=== PATIENT | female | born 1965 | race African-American/Black ===

== ENCOUNTER 2016-11-23 17:54 | Emergency (ER) | payer MEDICAID ==
[2014-10-25 09:11] VITALS: BMI 30.3
[~2016-11-23 17:54] MED LIST: AMITRIPTYLINE100 MG PO; CALAN120 MG PO; DILANTIN100 MG PO; HYDROCODON-ACE1 EAC7 PO; LASIX20 MG PO; XANAX1 MG PO; ZANTAC150 MG PO
== END 2016-11-23 19:57 | disposition left against medical advice (07) ==
LOC: D.ER 17:54
DX: S79.911A Unspecified injury of right hip, initial encounter (principal); X58.XXXA Exposure to other specified factors, initial encounter; Y93.89 Activity, other specified; Y92.89 Other specified places as the place of occurrence of the external cause

== ENCOUNTER 2016-11-30 12:36 | Emergency (ER) | payer MEDICAID ==
[2014-10-25 09:11] VITALS: BMI 30.3
== END 2016-11-30 16:30 | disposition home or self-care (01) ==
LOC: D.ER 12:36
DX: M25.551 Pain in right hip (principal); M54.30 Sciatica, unspecified side; I10 Essential (primary) hypertension; F17.200 Nicotine dependence, unspecified, uncomplicated

== ENCOUNTER 2017-07-08 00:35 | Emergency (ER) | payer MEDICAID ==
[2014-10-25 09:11] VITALS: BMI 30.3
[2017-07-08 01:27] LABS: BASOPHILS 0.1 % (0-2); EOSINOPHILS 0.7 % (0-7); HEMATOCRIT 39.1 % (36.0-48.0); HEMOGLOBIN 13.3 g/dL (12-16); IMMATURE GRANULOCYTES 0.3 % (0-5); LYMPHOCYTES 19.4 % (15-50); MCH 32.8 pg (26.0-34.0); MCV 96.5 fL (80.0-100.0); MEAN PLATELET VOLUME 9.7 fL (7.4-10.4); MONOCYTES 5.1 % (2-11); NEUTROPHILS 74.4 % (40-80); PLATELET COUNT 340 10x3/uL (130-400); RBC 4.05 10x6/uL (4.00-5.40); RDW 14.2 % (11.5-14.5); WBC 14.7 10x3/uL (4.8-10.8)
[2017-07-08 01:44] LABS: ALBUMIN 3.5 g/dL (3.4-5.0); ANION GAP 11.9 mmol/L (8-16); BILIRUBIN - TOTAL 0.27 mg/dL (0.2-1.3); CALCIUM 8.6 mg/dL (8.5-10.1); CARBON DIOXIDE 25.7 mmol/L (21.0-32.0); CREATININE - SERUM 1.1 mg/dL (0.6-1.3); POTASSIUM - SERUM 3.6 mmol/L (3.5-5.1); PROTEIN - SERUM 8.2 g/dL (6.4-8.2)
[2017-07-08 01:52] LABS: UDS - AMPHET NEGATIVE QUAL (NEGATIVE); UDS - BARB NEGATIVE QUAL (NEGATIVE); UDS - BENZO POSITIVE QUAL (NEGATIVE); UDS - COCAINE POSITIVE QUAL (NEGATIVE); UDS - OPIATE POSITIVE QUAL (NEGATIVE); UDS - PCP NEGATIVE QUAL (NEGATIVE); UDS - THC POSITIVE QUAL (NEGATIVE)
[2017-07-08 01:52] LABS: PHENYTOIN (DILANTIN) 12.2 ug/mL (10.0-20.0)
[2017-07-08 02:10] LABS: APPEARANCE CLEAR (CLEAR); BILIRUBIN NEGATIVE (NEGATIVE); COLOR YELLOW (YELLOW); GLUCOSE NEGATIVE (NEGATIVE); KETONE NEGATIVE (NEGATIVE); NITRITE NEGATIVE (NEGATIVE); PROTEIN TRACE mg/dL (NEGATIVE); SPECIFIC GRAVITY 1.005 (1.005-1.020); UROBILINOGEN NORMAL (NORMAL)
[2017-07-08 02:11] LABS: BACTERIA NONE SEEN /hpf (NONE SEEN); EPITHELIAL CELLS 0-5 /hpf (0-5); RED CELLS - URINE 0-5 /hpf (0-5); WHITE CELLS - URINE 0-5 /hpf (0-5)
== END 2017-07-08 02:50 | disposition home or self-care (01) ==
LOC: D.ER 00:35
PROVIDERS: Family Medicine
DX: R53.83 Other fatigue (principal); F14.10 Cocaine abuse, uncomplicated

== ENCOUNTER 2018-06-21 07:04 | Emergency (ER) | payer MEDICAID ==
[~2018-06-21] VITALS: Ht 154.9 cm; Wt 74.4 kg
[2018-06-21 07:09] VITALS: Ht 154.9 cm; Wt 74.4 kg
[2018-06-21 07:47] LABS: BASOPHILS 0.1 % (0-2); EOSINOPHILS 0.4 % (0-7); HEMATOCRIT 37.8 % (36.0-48.0); HEMOGLOBIN 12.8 g/dL (12-16); IMMATURE GRANULOCYTES 0.2 % (0-5); LYMPHOCYTES 19.6 % (15-50); MCH 32.6 pg (26.0-34.0); MCHC 33.9 g/dL (31.0-37.0); MCV 96.2 fL (80.0-100.0); MEAN PLATELET VOLUME 9.3 fL (7.4-10.4); MONOCYTES 5.8 % (2-11); NEUTROPHILS 73.9 % (40-80); PLATELET COUNT 323 10x3/uL (130-400); RBC 3.93 10x6/uL (4.00-5.40); WBC 13.5 10x3/uL (4.8-10.8)
[2018-06-21 08:02] LABS: ALBUMIN 3.5 g/dL (3.4-5.0); ANION GAP 15.2 mmol/L (8-16); BILIRUBIN - TOTAL 0.19 mg/dL (0.2-1.3); CALCIUM 8.9 mg/dL (8.5-10.1); CARBON DIOXIDE 23.2 mmol/L (21.0-32.0); CREATININE - SERUM 1.1 mg/dL (0.6-1.3); PHENYTOIN (DILANTIN) 17.2 ug/mL (10.0-20.0); POTASSIUM - SERUM 3.4 mmol/L (3.5-5.1); PROTEIN - SERUM 7.7 g/dL (6.4-8.2)
[2018-06-21] MEDS ORDERED: ZPAK PO (08:29)
[2018-06-21 08:59] VITALS: BP 114/69
== END 2018-06-21 08:42 | disposition home or self-care (01) ==
LOC: D.ER 07:04
PROVIDERS: Family Medicine
DX: J18.9 Pneumonia, unspecified organism (principal); G40.909 Epilepsy, unspecified, not intractable, without status epilepticus; I10 Essential (primary) hypertension

== ENCOUNTER 2018-07-11 14:09 | Emergency (ER) | payer MEDICAID ==
[~2018-07-11] VITALS: Ht 154.9 cm; Wt 63.6 kg
[~2018-07-11 14:09] MED LIST changes: +ZPAK PO
[2018-07-11 14:22] VITALS: BP 127/80; Ht 154.9 cm; Wt 63.6 kg
== END 2018-07-11 16:54 | disposition left against medical advice (07) ==
LOC: D.ER 14:09
DX: R05 Cough (principal); R09.89 Other specified symptoms and signs involving the circulatory and respiratory systems

== ENCOUNTER 2018-07-13 18:40 | Emergency (ER) | payer SELFPAY ==
[~2018-07-13] VITALS: Ht 154.9 cm; Wt 75.9 kg
[2018-07-13 18:59] VITALS: Ht 154.9 cm; Wt 75.9 kg
[2018-07-13] MEDS ORDERED: NEURONTIN600 MG PO (19:03)
[2018-07-13] MEDS ORDERED: PHENERGAN6.25 MG/5 PO (19:03)
[2018-07-13] MEDS ORDERED: MEDROL DOSE PACK4 MG PO (19:03)
[2018-07-13] MEDS ORDERED: HYDROCHLOROTHIA25 MG PO (19:03)
[2018-07-13] MEDS ORDERED: NIFEDIPINE ER90 MG PO (19:04)
[2018-07-13] MEDS ORDERED: PAXIL20 MG PO (19:04)
[2018-07-13] MEDS ORDERED: TOFRANIL50 MG PO (19:04)
[2018-07-13] MEDS ORDERED: ESTRACE1 MG PO (19:05)
[2018-07-13] MEDS ORDERED: CATAPRES0.1 MG PO (19:05)
[2018-07-13] MEDS ORDERED: VIBRAMYCIN 100100 MG PO (20:15)
[2018-07-13] MEDS ORDERED: GUAIFENESI100 MG/5 M PO (20:17)
[2018-07-13 20:58] VITALS: BP 104/76
== END 2018-07-13 21:05 | disposition home or self-care (01) ==
LOC: D.ER 18:40
DX: J02.9 Acute pharyngitis, unspecified (principal); R05 Cough; R09.89 Other specified symptoms and signs involving the circulatory and respiratory systems; I10 Essential (primary) hypertension; F17.200 Nicotine dependence, unspecified, uncomplicated

== ENCOUNTER 2019-01-20 09:59 | Emergency (ER) | payer MEDICAID ==
[~2019-01-20] VITALS: Ht 154.9 cm; Wt 75.0 kg
[~2019-01-20 09:59] MED LIST changes: +CATAPRES0.1 MG PO; +ESTRACE1 MG PO; +GUAIFENESI100 MG/5 M PO; +HYDROCHLOROTHIA25 MG PO; +MEDROL DOSE PACK4 MG PO; +NEURONTIN600 MG PO; +NIFEDIPINE ER90 MG PO; +PAXIL20 MG PO; +PHENERGAN6.25 MG/5 PO; +TOFRANIL50 MG PO; +VIBRAMYCIN 100100 MG PO
[2019-01-20 10:04] VITALS: Ht 154.9 cm; Wt 75.0 kg
[2019-01-20 10:46] LABS: BASOPHILS 0.2 % (0-2); EOSINOPHILS 0.7 % (0-7); HEMATOCRIT 38.6 % (36.0-48.0); HEMOGLOBIN 13.4 g/dL (12-16); IMMATURE GRANULOCYTES 0.2 % (0-5); LYMPHOCYTES 31.5 % (15-50); MCH 33.8 pg (26.0-34.0); MCHC 34.7 g/dL (31.0-37.0); MCV 97.2 fL (80.0-100.0); MONOCYTES 5.9 % (2-11); NEUTROPHILS 61.5 % (40-80); PLATELET COUNT 311 10x3/uL (130-400); RBC 3.97 10x6/uL (4.00-5.40); RDW 14.7 % (11.5-14.5); WBC 9.7 10x3/uL (4.8-10.8)
[2019-01-20 11:02] LABS: INR 1.02 (0.85-1.17); PROTIME 12.9 SECONDS (11.6-15.0)
[2019-01-20 11:04] LABS: ALBUMIN 3.5 g/dL (3.4-5.0); ALKALINE PHOSPHATASE 299 U/L (46-116); ALT (SGPT) 26 U/L (10-68); BILIRUBIN - TOTAL 0.22 mg/dL (0.2-1.3); CALC OSMOLALITY 265 mosm/kg (275-300); CALCIUM 9.3 mg/dL (8.5-10.1); CARBON DIOXIDE 24.1 mmol/L (21.0-32.0); CHLORIDE - SERUM 100 mmol/L (98-107); CREATININE - SERUM 1.3 mg/dL (0.6-1.3); GLUCOSE 78 mg/dL (74-106); POTASSIUM - SERUM 3.6 mmol/L (3.5-5.1); PROTEIN - SERUM 8.2 g/dL (6.4-8.2); SODIUM 131 mmol/L (136-145); UREA NITROGEN 25 mg/dL (7-18); eGFR NON AFRICAN AMERICAN 45 mL/min (90-120)
[2019-01-20 11:26] LABS: CKMB 1.2 U/L (0.0-3.6); CREATINE KINASE 126 UL (21-215); MAGNESIUM - SERUM 2.3 mg/dL (1.8-2.4)
[2019-01-20 11:27] LABS: TROPONIN-I < 0.017 ng/mL (0.000-0.060)
[2019-01-20] MEDS ORDERED: LOPRESSOR25 MG PO (11:45)
[2019-01-20 12:40] VITALS: BP 167/77
--- NOTE | 2019-01-20 13:44 | CN ---
PATIENT NAME:ACRO ANDREWS MEDICAL RECORD: [id number] : 63 LOCATION:.ER ADMIT DATE: ACCOUNT: [id number] CONSULTING PHYSICIAN: GATO COTETR MD REFERRING PHYSICIAN: TONO ROSARIO MD DATE OF CONSULTATION: 01/20/2019 ADMITTING DIAGNOSES: 1. Chest pain. 2. Hypertension. HISTORY OF PRESENT ILLNESS: Mrs. Rios has been having chest pain since 2014. She has had noninvasive testing that has been normal. She presents with continued chest pain. She as well has anxiety disorder. She is on multiple medications including Paxil, Neurontin, Xanax. For blood pressure she is on Procardia, Calan and p.r.n. Catapres. At this time, she has had continued chest pain, but no real change in her pattern. She has a normal EKG, normal troponin. PHYSICAL EXAMINATION: GENERAL APPEARANCE: Well-nourished, well-developed, appears stated age. Level of distress, comfortable. PSYCHIATRIC: Mental status, alert, normal affect. Orientation, oriented to time, place and person. EYES: Lids and conjunctiva, noninjected. No discharge, no pallor. ENT: Lips, teeth, gums, normal dentition. Oropharynx, no cyanosis, no pallor. NECK: Carotid arteries, bilateral normal upstroke, no bruits, no thrills. JUGULAR VEINS: No jugular venous pressure or distention. CERVICAL LYMPH NODES: Nontender, nonenlarged. THYROID: Not enlarged. Nontender. No nodules. LUNGS: Respiratory effort, unlabored. CHEST: Normal curvature. No thoracic deformity. No chest wall tenderness. Percussion, resonant. Auscultation, clear. No wheezes, no rales, no rhonchi. CARDIOVASCULAR: Precordial exam, nondisplaced. No heaves or pericardial thrills. Rate and rhythm, regular. Heart sounds, normal S1, normal S2. No S3, no gallop, no rub. Systolic murmur, not heard. Diastolic murmur, not heard. EXTREMITIES: No cyanosis, no edema. Peripheral pulses, full and equal in all extremities, except as noted. No bruits appreciated. ABDOMEN: Soft, nondistended. Normal aorta. No bruit. Nontender. No masses. Liver, nontender, no hepatomegaly. Spleen, nontender, no splenomegaly. MUSCULOSKELETAL: No joint tenderness. No joint swelling. No erythema. NEUROLOGICAL: Normal gait, normal strength, normal tone. SKIN: Warm and dry. OVERALL IMPRESSION: Chest discomfort, most likely secondary to hypertension, this is most likely not due to ischemic heart disease. She has had multiple studies in the past that all have been normal. At this time, she is set for possible cardiac catheterization by Dr. Shell on Wednesday, proceed with that. Continue her current medications. Add a beta keagan to her medications for better blood pressure and heart rate control. TRANSINT:[id number] Voice Confirmation ID: [id number] DOCUMENT ID: [id number] CONSULT REPORT [id number] CARO ANDREWS JEFFREY MD at 1344 CC: [id number] DICTATION DATE: 01/20/19 1126 [employer] CONSULTANT: 01/20/19 1203 DEP ER 01/20/19 [id number] [place] [id number]
== END 2019-01-20 12:47 | disposition home or self-care (01) ==
LOC: D.ER 09:59
PROVIDERS: Emergency Medicine
DX: R07.9 Chest pain, unspecified (principal); R51 Headache

== ENCOUNTER 2019-07-31 06:36 | Emergency (ER) | payer SELFPAY ==
[~2019-07-31] VITALS: Ht 154.9 cm; Wt 73.6 kg
[~2019-07-31 06:36] MED LIST changes: +LOPRESSOR25 MG PO
[2019-07-31 06:39] VITALS: Ht 154.9 cm; Wt 73.6 kg
[2019-07-31 07:16] LABS: BASOPHILS 0.1 % (0-2); EOSINOPHILS 0.1 % (0-7); HEMATOCRIT 38.1 % (36.0-48.0); IMMATURE GRANULOCYTES 0.1 % (0-5); LYMPHOCYTES 15.4 % (15-50); MCH 32.5 pg (26.0-34.0); MCHC 34.1 g/dL (31.0-37.0); MCV 95.3 fL (80.0-100.0); MEAN PLATELET VOLUME 9.5 fL (7.4-10.4); MONOCYTES 7.7 % (2-11); NEUTROPHILS 76.6 % (40-80); PLATELET COUNT 261 10x3/uL (130-400); RDW 13.8 % (11.5-14.5); WBC 8.3 10x3/uL (4.8-10.8)
[2019-07-31 07:22] LABS: ANION GAP 18.1 mmol/L (8-16); CALCIUM 9.1 mg/dL (8.5-10.1); CARBON DIOXIDE 20.4 mmol/L (21.0-32.0); CREATININE - SERUM 1.3 mg/dL (0.6-1.3); POTASSIUM - SERUM 3.5 mmol/L (3.5-5.1)
[2019-07-31 07:27] LABS: ALBUMIN 3.6 g/dL (3.4-5.0); BILIRUBIN - TOTAL 0.5 mg/dL (0.2-1.3); PROTEIN - SERUM 8.1 g/dL (6.4-8.2)
[2019-07-31] MEDS ORDERED: XOFLUZA20 MG PO (07:56)
[2019-07-31] MEDS ORDERED: CLEOCIN HCL300 MG PO (07:56)
[2019-07-31] MEDS ORDERED: KEFLEX500 MG PO (07:56)
[2019-07-31 08:08] LABS: APPEARANCE HAZY (CLEAR); BILIRUBIN NEGATIVE (NEGATIVE); COLOR YELLOW (YELLOW); GLUCOSE NEGATIVE (NEGATIVE); KETONE MODERATE mg/dL (NEGATIVE); NITRITE NEGATIVE (NEGATIVE); PROTEIN TRACE mg/dL (NEGATIVE); SPECIFIC GRAVITY 1.015 (1.005-1.020)
[2019-07-31 08:10] LABS: BACTERIA FEW /hpf (NEGATIVE); EPITHELIAL CELLS 0-5 /hpf (0-5); MUCUS <1+ /lpf (NONE SEEN); WHITE CELLS - URINE RARE /hpf (NEGATIVE)
[2019-07-31 09:10] VITALS: BP 142/80
== END 2019-07-31 09:11 | disposition home or self-care (01) ==
LOC: D.ER 06:36
PROVIDERS: Emergency Medicine
DX: J09.X2 Influenza due to identified novel influenza A virus with other respiratory manifestations (principal); Z72.0 Tobacco use; J45.909 Unspecified asthma, uncomplicated; L98.492 Non-pressure chronic ulcer of skin of other sites with fat layer exposed; R11.10 Vomiting, unspecified; I10 Essential (primary) hypertension; K21.9 Gastro-esophageal reflux disease without esophagitis

== ENCOUNTER 2019-12-29 11:35 | Emergency (ER) | payer OTHER ==
[~2019-12-29] VITALS: Ht 154.9 cm; Wt 72.7 kg
[~2019-12-29 11:35] MED LIST changes: +CLEOCIN HCL300 MG PO; +KEFLEX500 MG PO; +XOFLUZA20 MG PO
[2019-12-29 11:39] VITALS: Ht 154.9 cm; Wt 72.7 kg
[2019-12-29 12:22] LABS: BASOPHILS 0.2 % (0-2); EOSINOPHILS 1.8 % (0-7); HEMATOCRIT 36.8 % (36.0-48.0); HEMOGLOBIN 12.2 g/dL (12-16); IMMATURE GRANULOCYTES 0.2 % (0-5); LYMPHOCYTES 28.4 % (15-50); MCH 31.6 pg (26.0-34.0); MCHC 33.2 g/dL (31.0-37.0); MCV 95.3 fL (80.0-100.0); MEAN PLATELET VOLUME 8.9 fL (7.4-10.4); NEUTROPHILS 62.4 % (40-80); RBC 3.86 10x6/uL (4.00-5.40); RDW 17.2 % (11.5-14.5); WBC 8.3 10x3/uL (4.8-10.8)
[2019-12-29 12:36] LABS: PLATELET COUNT 366 10x3/uL (130-400)
[2019-12-29 12:45] LABS: CARBON DIOXIDE 23.9 mmol/L (21.0-32.0); CREATININE - SERUM 1.1 mg/dL (0.6-1.3); POTASSIUM - SERUM 3.9 mmol/L (3.5-5.1)
[2019-12-29 12:48] LABS: ALBUMIN 3.5 g/dL (3.4-5.0); BILIRUBIN - TOTAL 0.12 mg/dL (0.2-1.3); C-REACTIVE PROTEIN 2.9 mg/dL (0.0-0.9); PROTEIN - SERUM 7.4 g/dL (6.4-8.2); URIC ACID 7.2 mg/dL (2.6-7.2)
[2019-12-29] MEDS ORDERED: PREDNISONE20 MG PO (13:55)
[2019-12-29] MEDS ORDERED: ULTRAM50 MG PO (13:55)
[2019-12-29] MEDS ORDERED: COLCRYS0.6 MG PO (13:55)
[2019-12-29 14:25] VITALS: BP 138/79
== END 2019-12-29 14:25 | disposition home or self-care (01) ==
LOC: D.ER 11:35
PROVIDERS: Family Medicine
DX: M10.9 Gout, unspecified (principal); M25.561 Pain in right knee; I10 Essential (primary) hypertension; K21.9 Gastro-esophageal reflux disease without esophagitis; Z72.0 Tobacco use

== ENCOUNTER 2020-01-27 14:42 | Emergency (ER) | payer OTHER ==
[~2020-01-27] VITALS: Ht 154.9 cm; Wt 70.5 kg
[~2020-01-27 14:42] MED LIST changes: +COLCRYS0.6 MG PO; +PREDNISONE20 MG PO; +ULTRAM50 MG PO
[2020-01-27 14:47] VITALS: Ht 154.9 cm; Wt 70.5 kg
[2020-01-27] MEDS ORDERED: CLARITIN 10 MG10 MG (14:50)
[2020-01-27] MEDS ORDERED: ZPAK (14:50)
[2020-01-27] MEDS ORDERED: CILOXAN5 ML (14:50)
[2020-01-27] MEDS ORDERED: [UNRECOGNIZED DRUG - OTHER] (14:50)
[2020-01-27 15:12] LABS: BASOPHILS 0.2 % (0-2); HEMATOCRIT 40.9 % (36.0-48.0); HEMOGLOBIN 13.7 g/dL (12-16); IMMATURE GRANULOCYTES 0.1 % (0-5); LYMPHOCYTES 40.5 % (15-50); MCH 32.1 pg (26.0-34.0); MCHC 33.5 g/dL (31.0-37.0); MCV 95.8 fL (80.0-100.0); MEAN PLATELET VOLUME 10.1 fL (7.4-10.4); MONOCYTES 6.3 % (2-11); NEUTROPHILS 50.9 % (40-80); PLATELET COUNT 376 10x3/uL (130-400); RBC 4.27 10x6/uL (4.00-5.40); RDW 16.4 % (11.5-14.5); WBC 9.7 10x3/uL (4.8-10.8)
[2020-01-27 15:22] LABS: APTT 29.1 SECONDS (22.8-39.4); INR 0.91 (0.85-1.17); PROTIME 12.2 SECONDS (11.6-15.0)
[2020-01-27 15:34] LABS: CALC OSMOLALITY 272 mosm/kg (275-300); CARBON DIOXIDE 25.2 mmol/L (21.0-32.0); CHLORIDE - SERUM 102 mmol/L (98-107); CREATININE - SERUM 1.2 mg/dL (0.6-1.3); GLUCOSE 85 mg/dL (74-106); POTASSIUM - SERUM 3.1 mmol/L (3.5-5.1); SODIUM 137 mmol/L (136-145); UREA NITROGEN 12 mg/dL (7-18); eGFR NON AFRICAN AMERICAN 49 mL/min (90-120)
[2020-01-27 15:54] LABS: ALBUMIN 3.9 g/dL (3.4-5.0); ALKALINE PHOSPHATASE 220 U/L (30-120); ALT (SGPT) 18 U/L (10-68); BILIRUBIN - TOTAL 0.26 mg/dL (0.2-1.3); CKMB 0.7 U/L (0.0-3.6); CREATINE KINASE 79 UL (21-215); PRO BNP 18 pg/mL (0-125)
[2020-01-27 15:55] LABS: TROPONIN-I < 0.017 ng/mL (0.000-0.060)
[2020-01-27 18:47] VITALS: BP 145/81
== END 2020-01-27 18:50 | disposition home or self-care (01) ==
LOC: D.ER 14:42
PROVIDERS: Emergency Medicine
DX: H66.91 Otitis media, unspecified, right ear (principal); E87.6 Hypokalemia; R11.2 Nausea with vomiting, unspecified; R19.7 Diarrhea, unspecified; I10 Essential (primary) hypertension; K21.9 Gastro-esophageal reflux disease without esophagitis; Z72.0 Tobacco use; R06.02 Shortness of breath; J02.9 Acute pharyngitis, unspecified